=== PATIENT | male | born 1975 | race Caucasian/White ===

== ENCOUNTER 2016-10-13 10:40 | Emergency (ER) | payer MEDICAID ==
[~2016-10-13] VITALS: Ht 180.3 cm; Wt 113.1 kg
[2016-10-13 10:43] VITALS: BP 149/81
[2016-10-13] MEDS ORDERED: KETOROLAC 30 MG/1 ML ONE (10:57)
[2016-10-13] MEDS ORDERED: DIAZEPAM 5 MG TABLET ONE (10:57)
[2016-10-13] MEDS ORDERED: KETOROLAC 30 MG/1 ML IM ONE (11:00)
[2016-10-13] MEDS ORDERED: DIAZEPAM 5 MG TABLET PO ONE (11:00)
== END 2016-10-13 11:49 | disposition home or self-care (01) ==
LOC: ED 11:43
DX: S39.012A Strain of muscle, fascia and tendon of lower back, initial encounter (principal); X58.XXXA Exposure to other specified factors, initial encounter; Y93.89 Activity, other specified; Y99.8 Other external cause status; Y92.89 Other specified places as the place of occurrence of the external cause
CPT/HCPCS: 96372; 99283; J1885

== ENCOUNTER 2016-10-28 20:39 | Emergency (ER) | payer MEDICAID ==
[~2016-10-28] VITALS: Ht 180.3 cm; Wt 112.6 kg
[2016-10-28 20:40] VITALS: BP 134/88
[2016-10-28] MEDS ORDERED: DIAZEPAM 5 MG TABLET ONE (21:12)
[2016-10-28] MEDS ORDERED: KETOROLAC 30 MG/1 ML ONE (21:13)
[2016-10-28] MEDS ORDERED: KETOROLAC 30 MG/1 ML IM ONE (21:30)
[2016-10-28] MEDS ORDERED: DIAZEPAM 5 MG TABLET PO ONE (21:30)
== END 2016-10-28 22:12 | disposition home or self-care (01) ==
LOC: ED 21:00
DX: S39.012A Strain of muscle, fascia and tendon of lower back, initial encounter (principal); S29.012A Strain of muscle and tendon of back wall of thorax, initial encounter; M51.36 Other intervertebral disc degeneration, lumbar region; X58.XXXA Exposure to other specified factors, initial encounter; Y93.89 Activity, other specified; Y99.9 Unspecified external cause status; Y92.89 Other specified places as the place of occurrence of the external cause
CPT/HCPCS: 72072; 72110; 96372; 99284; J1885

== ENCOUNTER 2017-01-13 20:00 | Emergency (ER) | payer MEDICAID ==
[~2017-01-13] VITALS: Ht 177.8 cm; Wt 112.7 kg
[2017-01-13] MEDS ORDERED: METHOCARBAMOL 750 MG TABLET PO ONE (21:00)
[2017-01-13] MEDS ORDERED: IBUPROFEN 200 MG TABLET PO ONE (21:00)
[2017-01-13] MEDS ORDERED: OXYcodone/APAP 5/325MG TABLET PO ONE (21:00)
[2017-01-13] MEDS ORDERED: OXYcodone/APAP 5/325MG TABLET ONE (21:06)
[2017-01-13] MEDS ORDERED: METHOCARBAMOL 750 MG TABLET ONE (21:07)
[2017-01-13] MEDS ORDERED: IBUPROFEN 200 MG TABLET ONE (21:07)
[2017-01-13 22:10] VITALS: BP 133/83
== END 2017-01-13 22:12 | disposition home or self-care (01) ==
LOC: ED 21:30
DX: S46.012A Strain of muscle(s) and tendon(s) of the rotator cuff of left shoulder, initial encounter (principal); X50.1XXA Overexertion from prolonged static or awkward postures, initial encounter; Y93.89 Activity, other specified; Y92.89 Other specified places as the place of occurrence of the external cause; Y99.8 Other external cause status
CPT/HCPCS: 99284

== ENCOUNTER 2017-01-25 06:10 | Emergency (ER) | payer MEDICAID ==
[~2017-01-25] VITALS: Ht 182.9 cm; Wt 110.9 kg
[2017-01-25] MEDS ORDERED: ONDANSETRON ODT 4 MG ONE (06:38)
[2017-01-25] MEDS ORDERED: OXYcodone/APAP 5/325MG TABLET ONE (06:38)
[2017-01-25] MEDS ORDERED: ONDANSETRON ODT 4 MG PO ONE (07:00)
[2017-01-25] MEDS ORDERED: OXYcodone/APAP 5/325MG TABLET PO ONE (07:00)
[2017-01-25 08:27] VITALS: BP 112/79
== END 2017-01-25 08:34 | disposition home or self-care (01) ==
LOC: ED 06:20
DX: N45.1 Epididymitis (principal)
CPT/HCPCS: 76870; 81003; 93975; 99285; Q0162

== ENCOUNTER 2017-12-30 08:46 | Emergency (ER) | payer MEDICAID, OTHER ==
[~2017-12-30] VITALS: Ht 180.3 cm; Wt 109.0 kg
[2017-12-30] MEDS ORDERED: KETOROLAC 30 MG/1 ML IM ONE (09:30)
[2017-12-30] MEDS ORDERED: KETOROLAC 30 MG/1 ML ONE (09:49)
[2017-12-30 11:26] VITALS: BP 135/73
== END 2017-12-30 11:29 | disposition home or self-care (01) ==
LOC: ED 11:12
DX: S73.111A Iliofemoral ligament sprain of right hip, initial encounter (principal); F17.200 Nicotine dependence, unspecified, uncomplicated; X58.XXXA Exposure to other specified factors, initial encounter; Y93.89 Activity, other specified; Y92.89 Other specified places as the place of occurrence of the external cause; Y99.8 Other external cause status
CPT/HCPCS: 76857; 99284

== ENCOUNTER 2018-09-01 14:55 | Emergency (ER) | payer SELFPAY ==
[~2018-09-01] VITALS: Ht 182.9 cm; Wt 114.6 kg
[2018-09-01 14:57] VITALS: BP 134/86
--- NOTE | 2018-09-01 15:28 | NUR ---
Patient/Caregiver given discharge instructions and they have confirmed that they understand the instructions. Patient ambulatory with steady gait.
== END 2018-09-01 15:29 | disposition home or self-care (01) ==
LOC: ED 15:00
DX: M75.111 Incomplete rotator cuff tear or rupture of right shoulder, not specified as traumatic (principal); G89.29 Other chronic pain; F17.200 Nicotine dependence, unspecified, uncomplicated
CPT/HCPCS: 99283

== ENCOUNTER 2019-05-15 19:32 | Emergency (ER) | payer BC ==
[~2019-05-15] VITALS: Ht 182.9 cm; Wt 110.5 kg
[2019-05-15 19:36] VITALS: BP 144/82
[2019-05-15 20:09] LABS: BASOPHILS % (AUTO) 0 % (0-1); EOSINOPHILS # (AUTO) 0.18 x10^3/uL (0-0.4); EOSINOPHILS % (AUTO) 2 % (1-7); LYMPHOCYTES # (AUTO) 0.79 x10^3/uL (1-3.4); LYMPHOCYTES % (AUTO) 9 % (22-44); MD NO; MEAN CORPUSCULAR HEMOGLOBIN 29.1 pg (27.5-34.5); MEAN CORPUSCULAR HGB CONC 33.1 g/dL (33.2-36.2); MEAN CORPUSCULAR VOLUME 87.9 fL (81-97); MEAN PLATELET VOLUME 8.4 fL (7.4-10.4); MONOCYTES # (AUTO) 0.45 x10^3/uL (0.2-0.8); MONOCYTES % (AUTO) 5 % (2-9); NEUTROPHILS # (AUTO) 7.63 x10^3/uL (1.8-6.8); NEUTROPHILS % (AUTO) 84 % (42-75); PLATELET COUNT 188 x10^3/uL (130-400); RED BLOOD COUNT 6.21 x10^6/uL (4.38-5.82); RED CELL DISTRIBUTION WIDTH 13.3 % (9.4-14.8)
[2019-05-15 20:21] LABS: ALBUMIN 4.1 g/dL (3.4-5.0); ANION GAP 5 mmol/L (5-15); CALCIUM 8.7 mg/dL (8.5-10.1); CHLORIDE 108 mmol/L (98-107); CREATININE 1.26 mg/dL (0.7-1.3)
[2019-05-15 20:30] LABS: ALANINE AMINOTRANSFERASE 48 U/L (12-78); ALKALINE PHOSPHATASE 88 U/L (45-117); BILIRUBIN,TOTAL 1.3 mg/dL (0.2-1.0); TOTAL PROTEIN 7.8 g/dL (6.4-8.2)
--- NOTE | 2019-05-15 21:55 | NUR ---
PT CALLED TO TRIAGE FOR REPEAT VITALS. NO ANSWER @ [phone].
== END 2019-05-15 23:27 | disposition left against medical advice (07) ==
LOC: ED 23:20
DX: R10.10 Upper abdominal pain, unspecified (principal); R94.31 Abnormal electrocardiogram [ECG] [EKG]; R11.2 Nausea with vomiting, unspecified
CPT/HCPCS: 36415; 80053; 83690; 85025; 93005; 99284

== ENCOUNTER 2019-05-16 20:23 | Emergency (ER) | payer BC ==
[~2019-05-16] VITALS: Ht 182.9 cm; Wt 110.4 kg
[2019-05-16 20:24] VITALS: BP 138/78
--- NOTE | 2019-05-16 20:36 | NUR ---
PT HERE WITH C/O COUGH X 3 WEEKS. PT STATES HE WAS SEEN HERE LAST NIGHT AND LEFT WITHOUT BEING SEEN DUE TO WAIT TIMES.
[2019-05-16] MEDS ORDERED: ALBUTEROL/IPRATROPIUM 2.5MG/0.5MG, 3 ML NPPB ONE (21:00)
--- NOTE | 2019-05-16 21:06 | NUR ---
REPORT GIVEN TO DARON HOGDES. CARE TRANSFERRED.
--- NOTE | 2019-05-16 21:10 | NUR ---
[facility] ADMIN PER JUL. RT AT BEDSIDE.
== END 2019-05-16 22:00 | disposition home or self-care (01) ==
LOC: ED 21:30
DX: J20.9 Acute bronchitis, unspecified (principal); B96.89 Other specified bacterial agents as the cause of diseases classified elsewhere
CPT/HCPCS: 71045; 93005; 99283; J7512; J7620

== ENCOUNTER 2020-11-11 07:29 | Emergency (ER) | payer BC ==
[~2020-11-11] VITALS: Ht 182.9 cm; Wt 105.9 kg
--- NOTE | 2020-11-11 07:58 | NUR ---
pt presents to ed with c/o abdominal pain/cramping x 1 month in all quadrants. states 2 weeks ago had a couple bright red stools, denies any since. denies n/v/d, chest pain, sob, or any trauma. states pain is worse when eating. pt a&o, resps even and unlabored, vss, nadn. edmd flores at bedside for eval.
[2020-11-11] MEDS ORDERED: SODIUM CHLORIDE FLUSH 10ML SYR IVF ONE (08:00)
[2020-11-11] MEDS ORDERED: FAMOTIDINE 20 MG TABLET PO ONE (08:00)
[2020-11-11] MEDS ORDERED: MAALOX/HYOSCYAMINE/LIDOCAINE 45 ML BTL PO ONE (08:00)
[2020-11-11] MEDS ORDERED: FAMOTIDINE 20 MG/2 ML IVPush ONE (08:00)
[2020-11-11] MEDS ORDERED: MAALOX/HYOSCYAMINE/LIDOCAINE 45 ML BTL ONE (08:01)
[2020-11-11] MEDS ORDERED: FAMOTIDINE 20 MG/2 ML ONE (08:01)
[2020-11-11 08:29] LABS: BASOPHILS % (AUTO) 1 % (0-1); EOSINOPHILS % (AUTO) 3 % (1-7); LYMPHOCYTES % (AUTO) 22 % (22-44); MEAN CORPUSCULAR HEMOGLOBIN 29.6 pg (27.5-34.5); MEAN CORPUSCULAR HGB CONC 34.3 g/dL (33.2-36.2); MEAN PLATELET VOLUME 8.6 fL (7.4-10.4); MONOCYTES % (AUTO) 6 % (2-9); NEUTROPHILS % (AUTO) 70 % (42-75); PLATELET COUNT 192 x10^3/uL (130-400); RED BLOOD COUNT 6.02 x10^6/uL (4.38-5.82); RED CELL DISTRIBUTION WIDTH 13.8 % (9.4-14.8)
[2020-11-11 08:31] LABS: MICROSCOPIC NOT IND
[2020-11-11 08:38] LABS: ALANINE AMINOTRANSFERASE 47 U/L (12-78); ALBUMIN 3.9 g/dL (3.4-5.0); ANION GAP 6 mmol/L (5-15); CHLORIDE 110 mmol/L (98-107); CREATININE 1.02 mg/dL (0.7-1.3)
[2020-11-11 08:40] LABS: ALKALINE PHOSPHATASE 86 U/L (45-117); BILIRUBIN,TOTAL 0.7 mg/dL (0.2-1.0); TOTAL PROTEIN 7.5 g/dL (6.4-8.2)
--- NOTE | 2020-11-11 08:56 | NUR ---
pt to ct
[2020-11-11] MEDS ORDERED: OMNIPAQUE 350 MG/ML, 100ML BOTTLE ONE (09:24)
[2020-11-11 09:56] VITALS: BP 129/70
--- NOTE | 2020-11-11 09:57 | NUR ---
PT RESTING IN BED, A&O, RESPS EVEN AND UNLABORED, VSS, NADN. AWAITING CT RESULTS AND DISPO.
--- NOTE | 2020-11-11 10:14 | NUR ---
preceptor RN note: marcus acharya at bedside to update pt with results and poc.
--- NOTE | 2020-11-11 10:53 | NUR ---
PT EDUCATED ON DISCHARGE, PRECRIPTION, FOLLOW-UP, AND RETURN CRITERIA, VERBALIZED UNDERSTANDING. PT A&O, RESPS EVEN AND UNLABORED, VSS, NADN. AMBULATORY TO DISCHARGE WITH STEADY GAIT.
== END 2020-11-11 10:56 | disposition home or self-care (01) ==
LOC: ED 09:25
DX: I88.0 Nonspecific mesenteric lymphadenitis (principal); R10.84 Generalized abdominal pain
CPT/HCPCS: 36415; 74177; 80053; 81003; 83690; 85025; 96374; 99285; Q9967